=== PATIENT | male | born 1970 | race Caucasian/White ===

== ENCOUNTER → 2022-07-08 | Outpatient (CLI) | payer BC ==
[~2022-07-08] MED LIST: BRIM.15SO OD; CEPH500 PO; HYDACE5 PO; [UNRECOGNIZED DRUG - REMARK]
[2022-07-09 14:11] LABS: Stool Occult Blood Guaiac 1 Neg (Neg)
== END | disposition home or self-care (01) ==
LOC: LAB SHORT 07:30
PROVIDERS: Physician Assistant
DX: D64.9 Anemia, unspecified (principal)
CPT/HCPCS: 82270